=== PATIENT | male | born 1980 ===

== ENCOUNTER 2017-08-05 00:12 | Emergency (ER) | payer SELFPAY ==
[2017-08-05 00:39] VITALS: BP 147/91
--- NOTE | 2017-08-05 01:06 | XRay Report ---
FINAL REPORT PROCEDURE: XR KNEE 1-2V RT TECHNIQUE: RIGHT knee radiographs, AP and lateral views. CPT 51317 HISTORY: Right knee pain. COMPARISON: No prior studies are available for comparison. FINDINGS: Fracture (s) and/or Dislocation(s): None . Alignment: Normal . Joint space(s): Slight medial compartment narrowing. Trace joint effusion. Soft tissues: Normal . Bone mineralization: Normal . Foreign bodies: None . IMPRESSION: Slight medial compartment narrowing. Trace joint effusion. No radiographic evidence of displaced fracture.
== END 2017-08-05 02:45 | disposition left against medical advice (07) ==
LOC: ED 00:12
DX: M25.561 Pain in right knee (principal); Z53.21 Procedure and treatment not carried out due to patient leaving prior to being seen by health care provider

== ENCOUNTER 2018-05-15 20:33 | Emergency (ER) | payer OTHER ==
[2018-05-15 20:47] VITALS: BP 161/105
--- NOTE | 2018-05-15 20:51 | Emergency Department Report ---
Chief Complaint: Chest Pain Stated Complaint: HERNÁN CHEST PAINS Time Seen by Provider: 05/15/18 20:50 - HPI History of Present Illness: RX SUPPOSE TO BE ON MED AND NOT CIG NO DRUGS/DRUGS MOM DEC HEART DZ 50'S DAD DEC HEART 61 PMH HTN PSH NONE PCP NONE CO CHEST PAIN AND SOB MSE COMPLETED - Exam Vital Signs: Vital Signs 05/15/18 20:44 Temperature 97.5 F L Pulse Rate 99 H Respiratory 18 Rate Blood Pressure 161/105 [Left] O2 Sat by Pulse 95 Oximetry MSE screening note: Focused history and physical exam performed. Due to findings the following was ordered: ED Disposition for MSE Condition: Stable
[2018-05-15 21:31] LABS: Basophils # (Auto) 0.1 K/mm3 (0.0-0.1); Basophils % (Auto) 1.7 % (0.0-1.8); Eosinophils # (Auto) 0.2 K/mm3 (0.0-0.4); Eosinophils % (Auto) 2.5 % (0.0-4.3); Hematocrit 42.2 % (35.5-45.6); Hemoglobin 14.5 gm/dl (11.8-15.2); Lymphocytes # (Auto) 2.4 K/mm3 (1.2-5.4); Lymphocytes % (Auto) 34.8 % (13.4-35.0); Mean Corpuscular HGB Conc 34 % (32-34); Mean Corpuscular Volume 96 fl (84-94); Monocytes % (Auto) 15.1 % (0.0-7.3); Platelet Count 206 K/mm3 (140-440); Red Blood Count 4.39 M/mm3 (3.65-5.03); Red Cell Distribution Width 14.9 % (13.2-15.2)
[2018-05-15 21:38] LABS: Alanine Aminotransferase 28 units/L (7-56); Albumin 4.8 g/dL (3.9-5); BUN/Creatinine Ratio 9; Blood Urea Nitrogen 7 mg/dL (9-20); Calcium 8.9 mg/dL (8.4-10.2); Hemolysis Index 6
--- NOTE | 2018-05-15 21:53 | XRay Report ---
PROCEDURE: XR CHEST ROUTINE 2V TECHNIQUE: PA and lateral chest radiographs were obtained. HISTORY: Chest Pain COMPARISONS: None. FINDINGS: Heart: Normal. Mediastinum/Vessels: Normal. Lungs/Pleural space: Normal. Bony thorax: No acute osseous abnormality. IMPRESSION: Normal examination. This document is electronically signed by Christine Cannon DO., May 15 2018 09:50:52 PM ET
[2018-05-15 21:54] LABS: Bacteria,Urine 1+ /HPF (Negative); Bilirubin,Urine NEG (Negative); Blood,Urine SM (Negative); Color,Urine Colorless (Yellow); Urobilinogen,Urine < 2.0 mg/dL (<2.0); WBC,Urine < 1.0 /HPF (0.0-6.0)
[2018-05-15 21:59] LABS: Amphetamine Screen,Urine PRESUMPTIVE NEGATIVE; Benzodiazepines Screen,Urine PRESUMPTIVE NEGATIVE; Cannabinoid Screen,Urine PRESUMPTIVE NEGATIVE; Cocaine Screen,Urine PRESUMPTIVE NEGATIVE; Methadone Screen,Urine PRESUMPTIVE NEGATIVE; Opiate Screen,Urine PRESUMPTIVE NEGATIVE
[2018-05-15] MEDS ORDERED: PROVENTIL IH ONE (22:06)
[2018-05-15] MEDS ORDERED: DELTASONE PO ONE (22:06)
[2018-05-15] MEDS ORDERED: IBUPROFEN PO ONE (22:07)
--- NOTE | 2018-05-15 22:32 | Emergency Department Report ---
ED Chest Pain HPI - General Chief Complaint: Chest Pain Stated Complaint: HERNÁN CHEST PAINS Time Seen by Provider: 05/15/18 20:50 Source: patient Mode of arrival: Ambulatory Limitations: No Limitations - History of Present Illness Initial Comments: pt is a 37 aam who presents for cough wheezing chest x 3 days pain reproduces with cough and noc wheezing pt denies sob or wheezing at this time there is no n/v no diaphoresis no back pain MD Complaint: chest pain Onset/Timin Onset: during rest, during exertion, after eating Pain Location: left chest Pain Radiation: none Severity: moderate Severity scale (0 -10): 8 Quality: tightness Consistency: intermittent Improves With: rest Worsens With: exertion Other Symptoms: cough Treatments Prior to Arrival: none Aspirin use within the Past 7 Days: (0) No - Related Data Previous Rx's Medication Instructions Recorded Last Taken Type Doxycycline Hyclate [Doxycycline 100 mg PO Q12HR 7 Days #14 tab 02/14/18 Unknown Rx Hyclate TAB] predniSONE [Prednisone] 50 mg PO DAILY #7 tablet 02/14/18 Unknown Rx ALBUTEROL Inhaler(NF) [VENTOLIN 2 puff IH Q4H PRN #1 inha 05/15/18 Unknown Rx Inhaler(NF)] Azithromycin [Zithromax Z-NADIRA] 250 mg PO DAILY #6 tab 05/15/18 Unknown Rx Benzonatate [Tessalon Perles] 100 mg PO Q8HR PRN #30 capsule 05/15/18 Unknown Rx Ibuprofen 800 mg PO TID PRN #30 tablet 05/15/18 Unknown Rx predniSONE [Deltasone] 40 mg PO QDAY 5 Days #10 tab 05/15/18 Unknown Rx Allergies Allergy/AdvReac Type Severity Reaction Status Date / Time No Known Allergies Allergy Unverified 08/05/17 00:39 Heart Score - HEART Score History: Slightly suspicious EKG: Normal Age: < 45 Risk factors: No known risk factors Troponin: < normal limit HEART Score: 0 ED Review of Systems ROS: Stated complaint: HERNÁN CHEST PAINS Other details as noted in HPI Constitutional: denies: chills, fever Eyes: denies: eye pain, eye discharge, vision change ENT: denies: ear pain, throat pain Respiratory: denies: cough, shortness of breath, wheezing Cardiovascular: chest pain. denies: palpitations Endocrine: no symptoms reported Gastrointestinal: denies: abdominal pain, nausea, diarrhea Genitourinary: denies: urgency, dysuria Musculoskeletal: denies: back pain, joint swelling, arthralgia Skin: denies: rash, lesions Neurological: denies: headache, weakness, paresthesias Psychiatric: denies: anxiety, depression Hematological/Lymphatic: denies: easy bleeding, easy bruising ED Past Medical Hx - Past Medical History Previous Medical History?: Yes Hx Hypertension: Yes - Surgical History Past Surgical History?: No - Social History Smoking Status: Current Every Day Smoker Substance Use Type: None - Medications Home Medications: Home Medications Medication Instructions Recorded Confirmed Last Taken Type Doxycycline Hyclate [Doxycycline 100 mg PO Q12HR 7 Days #14 tab 02/14/18 Unknown Rx Hyclate TAB] predniSONE [Prednisone] 50 mg PO DAILY #7 tablet 02/14/18 Unknown Rx ALBUTEROL Inhaler(NF) [VENTOLIN 2 puff IH Q4H PRN #1 inha 05/15/18 Unknown Rx Inhaler(NF)] Azithromycin [Zithromax Z-NADIRA] 250 mg PO DAILY #6 tab 05/15/18 Unknown Rx Benzonatate [Tessalon Perles] 100 mg PO Q8HR PRN #30 capsule 05/15/18 Unknown Rx Ibuprofen 800 mg PO TID PRN #30 tablet 05/15/18 Unknown Rx predniSONE [Deltasone] 40 mg PO QDAY 5 Days #10 tab 05/15/18 Unknown Rx ED Physical Exam - General Limitations: No Limitations General appearance: alert, in no apparent distress - Head Head exam: Present: atraumatic, normocephalic - Eye Eye exam: Present: normal appearance, PERRL, EOMI - ENT ENT exam: Present: normal orophraynx, mucous membranes moist, TM's normal bilaterally - Neck Neck exam: Present: normal inspection, full ROM, lymphadenopathy - Respiratory Respiratory exam: Present: normal lung sounds bilaterally, chest wall tenderness (left lateral chest wall tenderness to deep palpation ). Absent: respiratory distress, wheezes - Cardiovascular Cardiovascular Exam: Present: regular rate, normal rhythm, normal heart sounds. Absent: systolic murmur, diastolic murmur, rubs, gallop - GI/Abdominal GI/Abdominal exam: Present: soft, normal bowel sounds - Rectal Rectal exam: Present: deferred - Extremities Exam Extremities exam: Present: normal inspection - Back Exam Back exam: Present: normal inspection, full ROM. Absent: tenderness, CVA tenderness (R), CVA tenderness (L), muscle spasm, paraspinal tenderness, vertebral tenderness, rash noted - Neurological Exam Neurological exam: Present: alert, oriented X3, CN II-XII intact, normal gait - Psychiatric Psychiatric exam: Present: normal affect, normal mood - Skin Skin exam: Present: warm, dry, intact, normal color. Absent: rash ED Course Vital Signs 05/15/18 05/15/18 05/15/18 20:44 20:51 22:15 Temperature 97.5 F L 97.5 F L Pulse Rate 99 H 99 H Pulse Rate [ 105 H Posterior Bilateral Throughout] Respiratory 18 18 Rate Respiratory 20 Rate [Posterior Bilateral Throughout] Blood Pressure 161/105 Blood Pressure 161/105 [Left] O2 Sat by Pulse 95 95 Oximetry 05/15/18 05/15/18 22:19 22:25 Temperature Pulse Rate Pulse Rate [ 110 H Posterior Bilateral Throughout] Respiratory 18 Rate Respiratory 18 Rate [Posterior Bilateral Throughout] Blood Pressure Blood Pressure [Left] O2 Sat by Pulse Oximetry KJ score - Kj Score Age > 65: (0) No 3 or more CAD Risk Factors: (0) No 2 or more Angina events in past 24 hrs: (0) No Known CAD with more than 50% Stenosis: (0) No Elevated Cardiac Markers: (0) No ST Deviation Greater than 0.5mm: (0) No ED Medical Decision Making - Lab Data Result diagrams: 05/15/18 21:14 05/15/18 21:14 - EKG Data EKG shows normal: sinus rhythm, axis, intervals, QRS complexes, ST-T waves Rate: normal - EKG Data When compared to previous EKG there are: no significant change Interpretation: normal EKG (ekg interp by ed attending nsr no ST elevation no ectopy ) - Radiology Data Radiology results: report reviewed, image reviewed Ordering Physician: ASAD PRO Date of Service: 05/15/18 Procedure(s): XR chest routine 2V Accession Number(s): [id number] cc: ASAD PRO Fluoro Time In Minutes: PROCEDURE: XR CHEST ROUTINE 2V TECHNIQUE: PA and lateral chest radiographs were obtained. HISTORY: Chest Pain COMPARISONS: None. FINDINGS: Heart: Normal. Mediastinum/Vessels: Normal. Lungs/Pleural space: Normal. Bony thorax: No acute osseous abnormality. IMPRESSION: Normal examination. This document is electronically signed by Christine Cannon DO., May 15 2018 09:50:52 PM ET Transcribed By: [facility] Dictated By: CHRISTINE CANNON MD Electronically Authenticated By: CHRISTINE CANNON MD Signed Date/Time: 05/15/182152 DD/ 31 TD/TT: 05/15/182131 - Medical Decision Making CXR normal no infiltrate no opacities ekg: nsr no st elevation no pain is improved there is no sob no wheezing plan: tx for bronchitis, albuterol , prednisone, ibuprofen, tessalon, follow up with pcp in 2-3 day given referral to [facility] pt verbalized agreement and understanding of same. tp dc't to home in stable condition at this time. Critical care attestation.: If time is entered above; I have spent that time in minutes in the direct care of this critically ill patient, excluding procedure time. ED Disposition Clinical Impression: Bronchitis Disposition: [id number]-01 TO HOME OR SELFCARE Is pt being admited?: No Does the pt Need Aspirin: No Condition: Stable Instructions: Chronic Bronchitis (ED) Prescriptions: predniSONE [Deltasone] 40 mg PO QDAY 5 Days #10 tab Ibuprofen 800 mg PO TID PRN #30 tablet PRN Reason: Pain , Severe (7-10) Benzonatate [Tessalon Perles] 100 mg PO Q8HR PRN #30 capsule PRN Reason: Cough ALBUTEROL Inhaler(NF) [VENTOLIN Inhaler(NF)] 2 puff IH Q4H PRN #1 inha PRN Reason: shortness of breath wheezing Azithromycin [Zithromax Z-NADIRA] 250 mg PO DAILY #6 tab Referrals: [facility] MD HAZEL [Primary Care Provider] - 3-5 Days Forms: Work/School Release Form(ED) Time of Disposition: 23:22
== END 2018-05-15 23:36 | disposition home or self-care (01) ==
LOC: ED 20:33
DX: J40 Bronchitis, not specified as acute or chronic (principal); F17.200 Nicotine dependence, unspecified, uncomplicated; I10 Essential (primary) hypertension
CPT/HCPCS: 36415; 71046; 80053; 80307; 81001; 83880; 84484; 85025; 93005; 93010; 94640; 99284; J7512